=== PATIENT | female | born 1965 | race Two or more races ===

== ENCOUNTER → 2021-03-06 08:09 | Outpatient (CLI) | payer BC ==
--- NOTE | ~2021-03-06 | ST ---
PATIENT:LUPE MATIAS MEDICAL RECORD: [id number] SEX: F LOCATION:[facility] ORDER #: ADMISSION DATE: 03/06/21 AGE OF PATIENT: 55 REFERRING PHYSICIAN: INTERPRETING PHYSICIAN: GUERITA OBANDO MD DATE OF SERVICE: 03/06/2021 PROCEDURE: Nuclear stress test. GATED: Normal with normal wall motion, normal wall thickening, calculated EF 75%. SPECT IMAGING: SPECT imaging was performed. 1. Short axis view: Short axis view shows good uptake along the anterior wall, lateral wall and inferior wall. 2. Horizontal axis: Horizontal axis confirms good uptake along the anterior wall and inferior wall. 3. Vertical axis: Vertical axis shows good uptake along the lateral wall and septum. FINAL IMPRESSION: 1. Normal gated, normal wall motion, normal EF 75%. 2. Normal SPECT imaging. FINAL RECOMMENDATIONS: This scan is low risk for any significant myocardial ischemia or previous myocardial infarction. LV function remains normal. Continued risk factor modification is recommended. TRANSINT:[id number] Voice Confirmation ID: [id number] DOCUMENT ID: [id number] GUERITA OBANDO MD CC: [id number] DICTATION DATE: 03/07/21 0859 PRACTICE BILLING ASSOCIATE: 03/08/21 0517 DEP CLI 03/06/21 [place] [id number]
== END | disposition home or self-care (01) ==
LOC: D.HCCECHO 08:09
PROVIDERS: ATTEND Internal Medicine Interventional Cardiology
DX: I20.9 Angina pectoris, unspecified (principal); R07.9 Chest pain, unspecified